=== PATIENT | female | born 1995 | race Caucasian/White ===

== ENCOUNTER 2022-06-17 05:50 | Emergency (ER) | payer OTHER, SELFPAY ==
[2022-06-17 05:57] VITALS: BP 137/101; PULSE 106; RESP 20; TEMP 37.3; O2SAT 96; BMI 49.2
--- NOTE | 2022-06-17 06:20 | ED_ITS ---
HPI - General Adult General Chief complaint: Shortness of Breath/Dyspnea Stated complaint: Shortness of breath Time Seen by Provider: 06/17/22 05:52 History of Present Illness HPI narrative: This 26-year-old female comes in reporting nausea, vomiting, diarrhea, and some shortness of breath. She states that she was exposed to someone with COVID a couple days ago. She arrives with normal vital signs and is breathing normally. She does not have a fever. Her pulse is slightly elevated. Related Data Home Medications Medication Instructions Recorded Confirmed albuterol sulfate 90 mcg/actuation 1 inh inhalation Q4-6H PRN 06/17/22 06/17/22 aerosol inhaler buspirone 15 mg tablet 15 mg PO BID 06/17/22 06/17/22 escitalopram oxalate 20 mg tablet 20 mg PO DAILY 06/17/22 06/17/22 (Lexapro) fluticasone 250 mcg-salmeterol 50 1 inh inhalation Q12H 06/17/22 06/17/22 mcg/dose blistr powdr for inhalation (Advair Diskus) loratadine 10 mg tablet 10 mg PO DAILY 06/17/22 06/17/22 (Allerclear) Previous Rx's Medication Instructions Recorded ondansetron HCl 4 mg tablet 4 mg PO Q6H #20 tabs 06/17/22 Allergies Allergy/AdvReac Type Severity Reaction Status Date / Time peanut Allergy Severe Anaphylaxis Verified 06/17/22 06:20 tree nut Allergy Severe Anaphylaxis Verified 06/17/22 06:20 Review of Systems Status of ROS: Reports: 10 or more systems reviewed and unremarkable except as noted in History and below Narrative: Constitutional: No fevers, no weight gain or loss. Eyes: No discharge. No vision changes. HENT: No congestion, no sore throat, no ear pain. Cardiovascular: No chest pain, no palpitations. Respiratory: No wheezes, no cough. She reports some shortness of breath. Gastrointestinal: No abdominal pain. Nausea with vomiting and diarrhea. Genitourinary: No dysuria, no hematuria. Musculoskeletal: Normal range of motion. Skin: No rashes, no pruritis. Neurological: No dizziness, weakness, sensory change, speech change. Endo/Heme/Allergies: No bruising or bleeding. No polydipsia. Pysch: no suicidality, no anxiety, no insomnia. All other systems reviewed and are negative. PFSH PFSH Medical History (Updated 06/17/22 @ 07:09 by Clem Morton MD) Anaphylaxis Asthma Constipation Surgical History (Updated 06/17/22 @ 06:20 by Ledy Brownlee RN) History of tonsillectomy Exam Narrative: Exam Narrative: Constitutional: Well-developed, well-nourished, no acute distress. HEENT: Normocephalic, atraumatic. Neck: Normal range of motion. Nontender. Supple. Heart: Regular. No murmurs. Normal rate. Intact distal pulses. Lungs: Clear to auscultation. No chest discomfort. No wheezes, rhonchi, or rales. Abdomen: Normal bowel sounds. Nontender. No rebound tenderness. Genitalia: Deferred. Back: No midline tenderness. Normal range of motion. Extremities: Normal range of motion. No injury. Skin: Intact. No rash. Warm. No erythema or pallor. Neurologic: No altered sensation. No weakness. Alert and oriented. Psychiatric: No suicidality. No anxiety or depression. No insomnia. Nursing notes and vitals signs are reviewed. Const: Vital Signs, click to edit/add: Vital Signs - 24 hr 06/17/22 05:57 Temperature 99.1 F Pulse Rate [Left P ulse Oximeter] 106 H Respiratory Rate 20 Blood Pressure [Ri ght Upper Arm] 137/101 H Pulse Oximetry 96 Oxygen Delivery Me thod Room Air Course Vital Signs Vital signs: Initial Vital Signs Temperature 99.1 F 06/17/22 05:57 Temperature Source Temporal Artery Scan 06/17/22 05:57 Pulse Rate 106 H 06/17/22 05:57 Pulse Rhythm 06/17/22 05:57 Respiratory Rate 20 06/17/22 05:57 Blood Pressure 137/101 H 06/17/22 05:57 Blood Pressure Mean 113 06/17/22 05:57 Blood Pressure Position Sitting 06/17/22 05:57 Pulse Oximetry 96 06/17/22 05:57 Oxygen Delivery Method 06/17/22 05:57 Vital Signs Temperature 99.1 F 06/17/22 05:57 Pulse Rate 106 H 06/17/22 05:57 Respiratory Rate 20 06/17/22 05:57 Blood Pressure 137/101 H 06/17/22 05:57 Pulse Oximetry 96 06/17/22 05:57 Oxygen Delivery Method 06/17/22 05:57 Temperature 99.1 F 06/17/22 05:57 Pulse Rate 106 H 06/17/22 05:57 Respiratory Rate 20 06/17/22 05:57 Blood Pressure 137/101 H 06/17/22 05:57 Pulse Oximetry 96 06/17/22 05:57 Oxygen Delivery Method 06/17/22 05:57 Medical Decision Making MDM Narrative Medical decision making narrative: This patient comes in reporting symptoms of vomiting and diarrhea and shortness of breath. She is breathing normally and has normal breath sounds on exam. She states that she was exposed to COVID a couple days ago. Her COVID test and influenza test results today are all negative. The patient received an oral dose of Zofran which brought good relief to her nausea a. I advised her to use Imodium as needed and directed for diarrhea. Lab Data Labs: Lab Results 06/17/22 Range/Units 06:06 SARS-CoV-2 (PCR) Negative SARS-CoV-2 (Negative) Influenza Type A (PCR) Negative PCR FLU A (Negative) Influenza Type B (PCR) Negative PCR FLU B (Negative) Discharge Plan Discharge Clinical Impression: Gastroenteritis Patient Disposition: Home, Self-Care Condition: Improved Instructions: Gastroenteritis (ED) Additional Instructions: Increased diet as tolerated. Take medication as needed and prescribed. Follow up with MD also as needed. Prescriptions: New ondansetron HCl 4 mg tablet 4 mg PO Q6H Qty: 20 0RF No Action fluticasone propion-salmeterol [Advair Diskus] 250-50 mcg/dose blister with device 1 inh INHALATION Q12H Label Comments: INHALE 1 PUFF TWICE DAILY. RINSE MOUTH/GARGLE AFTER USE buspirone 15 mg tablet 15 mg PO BID Label Comments: TAKE 1 TABLET (15 MG) BY MOUTH TWO TIMES A DAY. albuterol sulfate 90 mcg/actuation HFA aerosol inhaler 1 inh inhalation Q4-6H PRN escitalopram oxalate [Lexapro] 20 mg tablet 20 mg PO DAILY loratadine [Allerclear] 10 mg tablet 10 mg PO DAILY Follow Up/Referrals: Provider,Not a Local [Primary Care Provider] - Stand Alone Forms: [facility] Info Instructions
[2022-06-17] MEDS: ONDANSETRON ODT 4 MG TAB PO (06:32)
[2022-06-17 06:48] LABS: PCR FLU A Negative PCR FLU A (Negative); PCR FLU B Negative PCR FLU B (Negative)
[2022-06-17 06:49] LABS: SARS PCR* Negative SARS-CoV-2 (Negative)
== END 2022-06-17 07:36 | disposition home or self-care (01) ==
PROVIDERS: Emergency Provider Emergency Medicine Emergency Medical Services
DX: K52.9 Noninfective gastroenteritis and colitis, unspecified (principal)
CPT/HCPCS: 87502; 87635; 99283; 99284; A9270